=== PATIENT | male | born 1930 | race Caucasian/White ===

== ENCOUNTER 2018-03-11 17:22 | Emergency (ER) | payer MEDICARE, OTHER ==
[2018-03-11 18:08] LABS: BASOPHILS % (AUTO) 0.3 % (0.0-5.0); EOSINOPHILS % (AUTO) 1.7 % (0.0-8.0); HEMATOCRIT 40.3 % (42-54); LYMPHOCYTES % (AUTO) 16.8 % (21.0-51.0); MEAN CORPUSCULAR HEMOGLOBIN 31.6 pg (27.0-33.0); MEAN CORPUSCULAR HGB CONC 35.1 g/dL (32.0-36.0); MEAN CORPUSCULAR VOLUME 90.1 fL (79-99); MONOCYTES % (AUTO) 10.1 % (3.0-13.0); NEUTROPHILS % (AUTO) 71.1 % (40.0-77.0); PLATELET COUNT (AUTO) 208 K/uL (130-400); RED BLOOD CELL COUNT(AUTO) 4.47 MIL/uL (4.50-6.20); RED CELL DISTRIBUTION WIDTH 13.8 % (11.0-15.5); WHITE BLOOD COUNT (AUTO) 7.6 K/uL (4.8-10.8)
[2018-03-11 18:11] LABS: POTASSIUM 3.7 mmol/L (3.5-5.1)
[2018-03-11] MEDS ORDERED: DICYCLOMINE HCL 10 MG/ML 2ML AMP IM ONE (18:18)
[2018-03-11 18:25] LABS: ALBUMIN 4.1 g/dL (3.5-5.0); BILIRUBIN,TOTAL 0.4 mg/dL (0.2-1.0); CREATINE KINASE MB 1.7 ng/mL (0.5-3.6); TOTAL PROTEIN, SERUM 7.3 g/dL (6.0-8.3)
[2018-03-11] MEDS ORDERED: LACTULOSE 20 GM/30 ML UDCUP ONE (19:22)
[2018-03-11] MEDS ORDERED: BISACODYL 10 MG SUPP.RECT RC ONE (19:23)
[2018-03-11 19:49] LABS: APPEARANCE,URINE Clear (CLEAR); BILIRUBIN,URINE Negative (NEGATIVE); COLOR,URINE Yellow (YELLOW); GLUCOSE, URINE (UA) Negative (NEGATIVE); KETONES,URINE Negative (NEGATIVE); LEUKOCYTE ESTERASE ,URINE Negative (NEGATIVE); NITRATE,URINE Negative (NEGATIVE); OCCULT BLOOD,URINE Trace (NEGATIVE); PH,URINE 6.5 (5.0-8.0); PROTEIN,URINE Negative (NEGATIVE); UROBILINOGEN,URINE 0.2 mg/dL (0.2-1.0)
[2018-03-11 20:10] LABS: SQUAMOUS EPITHELIAL CELL,UR 0-2 /HPF (0-2)
[2018-03-11 20:12] LABS: BACTERIA,URINE Few /HPF (None Seen); MUCUS,URINE None Seen LPF (None Seen); WBC,URINE 0-1 /HPF (0-1)
[2018-03-11] MEDS ORDERED: SIMETHICONE 80 MG TAB.CHEW ONE (20:44)
== END 2018-03-11 21:15 | disposition home or self-care (01) ==
LOC: EDH 17:22
DX: K59.00 Constipation, unspecified (principal); I10 Essential (primary) hypertension; Z85.46 Personal history of malignant neoplasm of prostate
CPT/HCPCS: 36415; 74021; 80053; 81001; 82550; 82553; 84484; 85025; 93005; 96372; 99285; J0500

== ENCOUNTER → 2019-10-14 | Outpatient (CLI) | payer MEDICARE, OTHER | END | disposition home or self-care (01) | LOC: RAH 08:58 | PROVIDERS: ATTEND Internal Medicine Gastroenterology | DX: K44.9 Diaphragmatic hernia without obstruction or gangrene (principal); K21.9 Gastro-esophageal reflux disease without esophagitis | CPT/HCPCS: 74240 ==

== ENCOUNTER 2019-10-28 05:40 | Day surgery (SDC) | payer MEDICARE, OTHER ==
[~2019-10-28] VITALS: Ht 167.6 cm; Wt 83.0 kg
[~2019-10-28 05:40] MED LIST: AMLODIPINE; OMEP20TA25 PO; PRAV40TA3 PO; VIT D 3 PO; ZOLP6.2526 PO
[2019-10-28] MEDS ORDERED: SODIUM CHLORIDE 0.9% 1000ML 1,000 ML IV ONE (05:52)
[2019-10-28 06:15] VITALS: BP 131/59
[2019-10-28] MEDS ORDERED: PROPOFOL 10 MG/ML 20ML VIAL IV ONE (06:59)
[2019-10-28] MEDS ORDERED: LIDOCAINE HCL 1% 20 ML VIAL ONE (07:00)
[2019-10-28 07:15] VITALS: BP 111/57
[2019-10-28 07:20] VITALS: BP 113/63
[2019-10-28 07:25] VITALS: BP 109/56
== END 2019-10-28 08:05 | disposition home or self-care (01) ==
LOC: DAH 05:40 → ENDO 05:40
PROVIDERS: ATTEND Internal Medicine Gastroenterology
DX: R13.10 Dysphagia, unspecified (principal); K29.50 Unspecified chronic gastritis without bleeding; K22.2 Esophageal obstruction; K44.9 Diaphragmatic hernia without obstruction or gangrene; K21.9 Gastro-esophageal reflux disease without esophagitis; E78.5 Hyperlipidemia, unspecified; I10 Essential (primary) hypertension; F41.9 Anxiety disorder, unspecified; Z79.899 Other long term (current) drug therapy; Z86.010 Personal history of colon polyps; Z85.46 Personal history of malignant neoplasm of prostate; Z98.890 Other specified postprocedural states; Z82.49 Family history of ischemic heart disease and other diseases of the circulatory system
CPT/HCPCS: 43239; 43249; 88305; 93005; A4215; A4221; A4222; A4223; A4606; A4615; A4663; C1726; J2704; J7030

== ENCOUNTER → 2021-02-11 | Outpatient (CLI) | payer MEDICARE, OTHER ==
[~2021-02-11] MED LIST changes: +IOHEXOL 350 MG/ML 100ML INFUS..BTL IV ONE; -ZOLP6.2526 PO; +ZOLP6.2539 PO
== END | disposition home or self-care (01) ==
LOC: OIH 07:31
PROVIDERS: ATTEND Internal Medicine Gastroenterology
DX: N28.1 Cyst of kidney, acquired (principal); K86.89 Other specified diseases of pancreas; K57.90 Diverticulosis of intestine, part unspecified, without perforation or abscess without bleeding; M51.34 Other intervertebral disc degeneration, thoracic region
CPT/HCPCS: 74170; Q9967

== ENCOUNTER → 2021-03-16 | Outpatient (CLI) | payer MEDICARE ==
[~2021-03-16] MED LIST changes: +AMLO5TAB4 PO; +ASPI-1197 PO; +FAMO40TA7 PO; +GADOTERATE MEGLUMINE 10 MMOL/20 ML VIAL IV ONE; +HYDR12.54 PO; -IOHEXOL 350 MG/ML 100ML INFUS..BTL IV ONE; +PANT40TA55 PO; +VALS160T29 PO
== END | disposition home or self-care (01) ==
LOC: RAH 07:26
PROVIDERS: ATTEND Internal Medicine Gastroenterology
DX: N28.1 Cyst of kidney, acquired (principal); R10.12 Left upper quadrant pain; K86.89 Other specified diseases of pancreas; K76.89 Other specified diseases of liver
CPT/HCPCS: 74183; A9575

== ENCOUNTER 2021-03-21 20:00 | Observation (INO) | payer MEDICARE ==
[~2021-03-21] VITALS: Ht 167.6 cm; Wt 78.0 kg
[2021-03-21 20:00] VITALS: BP 134/57
[~2021-03-21 20:00] MED LIST changes: -AMLO5TAB4 PO; -ASPI-1197 PO; -FAMO40TA7 PO; -GADOTERATE MEGLUMINE 10 MMOL/20 ML VIAL IV ONE; -HYDR12.54 PO; -PANT40TA55 PO; -VALS160T29 PO
[2021-03-21 20:14] LABS: HEMATOCRIT 39.8 % (42-54); MEAN CORPUSCULAR HEMOGLOBIN 30.1 pg (27.0-33.0); MEAN CORPUSCULAR HGB CONC 33.2 g/dL (32.0-36.0); MEAN CORPUSCULAR VOLUME 90.9 fL (79-99); RED BLOOD CELL COUNT(AUTO) 4.38 MIL/uL (4.50-6.20); RED CELL DISTRIBUTION WIDTH 12.8 % (11.0-15.5); WHITE BLOOD COUNT (AUTO) 6.3 K/uL (4.8-10.8)
[2021-03-21] MEDS ORDERED: MAG/ALUM/SIMETH 30 ML UDCUP PO ONE (20:30)
[2021-03-21] MEDS ORDERED: FAMOTIDINE 20MG VIAL IV ONE (20:30)
[2021-03-21] MEDS ORDERED: LIDOCAINE HCL 2% VISCOUS 15 ML UDCUP PO ONE (20:30)
[2021-03-21 20:52] LABS: CREATININE 1.2 mg/dL (0.5-1.5); POTASSIUM 3.7 mmol/L (3.5-5.1)
[2021-03-21 20:56] LABS: ALBUMIN 3.9 g/dL (3.5-5.0); BILIRUBIN,TOTAL 0.3 mg/dL (0.2-1.0); TOTAL PROTEIN, SERUM 7.3 g/dL (6.0-8.3)
[2021-03-21] MEDS: NITROGLYCERIN 0.4 MG SL TAB SL PRN ×4 (21:55→22:49)
[2021-03-21] MEDS ORDERED: DICYCLOMINE HCL 20 MG TAB PO SCH (22:00)
[2021-03-21 22:12] LABS: APPEARANCE,URINE Clear (CLEAR); BILIRUBIN,URINE Negative (NEGATIVE); COLOR,URINE Yellow (YELLOW); GLUCOSE, URINE (UA) Negative (NEGATIVE); KETONES,URINE Negative (NEGATIVE); LEUKOCYTE ESTERASE ,URINE Negative (NEGATIVE); NITRATE,URINE Negative (NEGATIVE); OCCULT BLOOD,URINE Negative (NEGATIVE); PROTEIN,URINE Negative (NEGATIVE)
[2021-03-21] MEDS ORDERED: NITROGLYCERIN 1GM OINT 1 INCH/1GM TD ONE (22:30)
[2021-03-21] MEDS ORDERED: ASPIRIN 325 MG TABLET PO SCH (23:00)
[2021-03-21 23:03] VITALS: BP 115/54
[2021-03-21] MEDS: NITROGLYCERIN 1GM OINT 1 INCH/1GM TD SCH (23:44)
[2021-03-22] VITALS (8 sets, daily range): BP systolic 95–131; BP diastolic 46–65
[2021-03-22] MEDS ORDERED: MORPHINE 2 MG SYG IVP PRN (00:30)
[2021-03-22] MEDS ORDERED: ONDANSETRON 4MG INJ IVP PRN (00:30)
[2021-03-22] MEDS ORDERED: AMLO5TAB4 PO (01:02)
[2021-03-22] MEDS ORDERED: ASPI-1197 PO (01:02)
[2021-03-22] MEDS ORDERED: VALS160T29 PO (01:03)
[2021-03-22] MEDS ORDERED: FAMO40TA7 PO (01:03)
[2021-03-22] MEDS ORDERED: HYDR12.54 PO (01:03)
[2021-03-22] MEDS: NITROGLYCERIN 1GM OINT 1 INCH/1GM TD SCH ×4 (05:09→23:00)
[2021-03-22 06:53] LABS: BASOPHILS % (AUTO) 0.2 % (0.0-5.0); HEMATOCRIT 38.7 % (42-54); LYMPHOCYTES % (AUTO) 8.4 % (21.0-51.0); MEAN CORPUSCULAR HEMOGLOBIN 29.9 pg (27.0-33.0); MEAN CORPUSCULAR HGB CONC 33.1 g/dL (32.0-36.0); MEAN CORPUSCULAR VOLUME 90.4 fL (79-99); MONOCYTES % (AUTO) 11.2 % (3.0-13.0); NEUTROPHILS % (AUTO) 79.7 % (40.0-77.0); PLATELET COUNT (AUTO) 182 K/uL (130-400); RED BLOOD CELL COUNT(AUTO) 4.28 MIL/uL (4.50-6.20); RED CELL DISTRIBUTION WIDTH 12.9 % (11.0-15.5); WHITE BLOOD COUNT (AUTO) 6.4 K/uL (4.8-10.8)
[2021-03-22 07:12] LABS: CARBON DIOXIDE 30 mmol/L (21-32); CHLORIDE 107 mmol/L (101-111); CHOLESTEROL 125 mg/dL (<200); CREATINE KINASE, TOTAL 87 U/L (21-232); CREATININE 1.1 mg/dL (0.5-1.5); GLOMERULAR FILTR. RATE CALC 67 mL/min (>60); GLUCOSE,RANDOM 154 mg/dL (70-105); HDL CHOLESTEROL 41 mg/dL (29-71); LDL DIRECT 72 mg/dL (0-99); MYOGLOBIN 69 ng/mL (10-92); POTASSIUM 4.2 mmol/L (3.5-5.1); SODIUM SERUM 145 mmol/L (136-145); TRIGLYCERIDES 78 mg/dL (30-200); TROPONIN I < 0.04 ng/mL (0.00-0.06); UREA NITROGEN, BLOOD 18 mg/dL (7-18)
[2021-03-22] MEDS: ASPIRIN 81MG CHEW TAB PO SCH (08:00)
[2021-03-22] MEDS: AMLODIPINE 5 MG TAB PO SCH (08:00)
[2021-03-22] MEDS: HYDROCHLOROTHIAZIDE 25 MG TABLET PO SCH (08:00)
[2021-03-22 08:44] LABS: MAGNESIUM 2.6 mg/dL (1.80-2.40); THYROID STIMULATING HORMONE 1.56 uIU/mL (0.36-3.74)
[2021-03-22] MEDS ORDERED: LOSARTAN 100 MG TABLET PO SCH (09:00)
[2021-03-22 13:36] LABS: CREATINE KINASE, TOTAL 87 U/L (21-232); MYOGLOBIN 91 ng/mL (10-92); TROPONIN I < 0.04 ng/mL (0.00-0.06)
[2021-03-22 19:41] LABS: CREATINE KINASE, TOTAL 110 U/L (21-232); MYOGLOBIN 121 ng/mL (10-92); TROPONIN I < 0.04 ng/mL (0.00-0.06)
[2021-03-22] MEDS ORDERED: VIT D 50 MCG PO SCH (21:00)
[2021-03-22] MEDS ORDERED: ZOLPIDEM TARTRATE 5 MG TAB PO SCH (21:00)
[2021-03-22] MEDS ORDERED: SIMVASTATIN 20 MG TABLET PO SCH (21:00)
[2021-03-23 03:07] VITALS: BP 96/53
[2021-03-23 04:09] LABS: BASOPHILS % (AUTO) 0.4 % (0.0-5.0); EOSINOPHILS % (AUTO) 2.9 % (0.0-8.0); HEMATOCRIT 33.9 % (42-54); LYMPHOCYTES % (AUTO) 15.6 % (21.0-51.0); MEAN CORPUSCULAR HEMOGLOBIN 29.8 pg (27.0-33.0); MEAN CORPUSCULAR HGB CONC 32.7 g/dL (32.0-36.0); MEAN CORPUSCULAR VOLUME 90.9 fL (79-99); MONOCYTES % (AUTO) 13.7 % (3.0-13.0); PLATELET COUNT (AUTO) 160 K/uL (130-400); RED BLOOD CELL COUNT(AUTO) 3.73 MIL/uL (4.50-6.20); RED CELL DISTRIBUTION WIDTH 13.2 % (11.0-15.5); WHITE BLOOD COUNT (AUTO) 5.6 K/uL (4.8-10.8)
[2021-03-23 04:34] LABS: CREATININE 1.2 mg/dL (0.5-1.5); POTASSIUM 3.5 mmol/L (3.5-5.1)
[2021-03-23] MEDS: NITROGLYCERIN 1GM OINT 1 INCH/1GM TD SCH (05:00)
[2021-03-23 08:42] VITALS: BP 104/53
[2021-03-23] MEDS ORDERED: PANTOPRAZOLE 40 MG TAB DR PO SCH (08:57)
[2021-03-23] MEDS: AMLODIPINE 5 MG TAB PO SCH (09:53)
[2021-03-23] MEDS: ASPIRIN 81MG CHEW TAB PO SCH (09:54)
[2021-03-23] MEDS: HYDROCHLOROTHIAZIDE 25 MG TABLET PO SCH (09:54)
[2021-03-23 11:40] VITALS: BP 115/63
[2021-03-23] MEDS ORDERED: PANT40TA55 PO (11:42)
== END 2021-03-23 12:55 | disposition home or self-care (01) ==
LOC: EDH 20:00 → EDHIP 22:56 → 4CH 03-22 08:22
PROVIDERS: ADMIT Hospitalist; ATTEND Hospitalist
DX: I24.9 Acute ischemic heart disease, unspecified (principal); R10.13 Epigastric pain; I10 Essential (primary) hypertension; G47.33 Obstructive sleep apnea (adult) (pediatric); E78.5 Hyperlipidemia, unspecified; K44.9 Diaphragmatic hernia without obstruction or gangrene; K21.9 Gastro-esophageal reflux disease without esophagitis; Z85.828 Personal history of other malignant neoplasm of skin; Z79.899 Other long term (current) drug therapy
CPT/HCPCS: 36415 ×3; 71045; 76705; 80048 ×2; 80053; 80061; 81003; 82550 ×3; 83690; 83735; 83874 ×3; 84443; 84484 ×5; 85025 ×2; 85027; 93005 ×4; 96374; 96375; 99285; G0378 ×38; J2405; J3490

== ENCOUNTER 2021-03-30 09:47 | Day surgery (SDC) | payer MEDICARE ==
[2021-03-30] VITALS (16 sets, daily range): BP systolic 112–154; BP diastolic 50–71
[~2021-03-30 09:47] MED LIST changes: +0.9%NACL 1000ML 1,000 ML IV ONE; +AMLO5TAB4 PO; -AMLODIPINE; +ASPI-1197 PO; +HYDR12.54 PO; -OMEP20TA25 PO; +PANT40TA55 PO; +VALS160T29 PO
[2021-03-30] MEDS ORDERED: IOHEXOL-350 50ML VIAL IV ONE (11:13)
[2021-03-30] MEDS ORDERED: SUCCINYLCHOLINE 200MG/10ML SYR ONE (12:27)
[2021-03-30] MEDS ORDERED: PROPOFOL 10 MG/ML 20ML VIAL IV ONE (12:27)
[2021-03-30] MEDS ORDERED: INDOMETHACIN 50 MG SUPP.RECT RC SCH (12:30)
[2021-03-30] MEDS ORDERED: ASPI-1197 PO (15:11)
== END 2021-03-30 15:10 | disposition home or self-care (01) ==
LOC: ENDO 09:47 → DAH 09:47 → ENDO 15:10
PROVIDERS: ATTEND Internal Medicine
DX: K86.89 Other specified diseases of pancreas (principal); Z20.822 Contact with and (suspected) exposure to COVID-19; I10 Essential (primary) hypertension; E78.5 Hyperlipidemia, unspecified; K21.9 Gastro-esophageal reflux disease without esophagitis; G47.30 Sleep apnea, unspecified
CPT/HCPCS: 43260; 74329; 87635; A4215; A4221; A4222; A4223; A4606; A4620; A4657 ×2; A4663; C1769 ×2; C9803; J0330; J2704; J7030 ×2; Q9967; 74330

== ENCOUNTER 2021-04-20 08:46 | Day surgery (SDC) | payer MEDICARE ==
[2021-04-20] VITALS (7 sets, daily range): BP systolic 103–136; BP diastolic 51–62
[~2021-04-20] VITALS: Ht 167.6 cm; Wt 76.2 kg
[~2021-04-20 08:46] MED LIST changes: -0.9%NACL 1000ML 1,000 ML IV ONE; -VIT D 3 PO; +ZOLP5TAB2 PO; -ZOLP6.2539 PO
[2021-04-20] MEDS ORDERED: 0.9%NACL 1000ML 1,000 ML IV ONE (10:47)
[2021-04-20] MEDS ORDERED: PROPOFOL 10 MG/ML 20ML VIAL IV ONE (13:30)
[2021-04-20] MEDS ORDERED: LIDOCAINE HCL 1% 20 ML VIAL ONE (13:31)
== END 2021-04-20 14:20 | disposition home or self-care (01) ==
LOC: DAH 08:46 → ENDO 08:46
PROVIDERS: ATTEND Internal Medicine Gastroenterology
DX: T18.3XXA Foreign body in small intestine, initial encounter (principal); Z20.822 Contact with and (suspected) exposure to COVID-19; K86.89 Other specified diseases of pancreas; R10.12 Left upper quadrant pain; I10 Essential (primary) hypertension; E78.5 Hyperlipidemia, unspecified; K21.9 Gastro-esophageal reflux disease without esophagitis; G47.30 Sleep apnea, unspecified; Z85.46 Personal history of malignant neoplasm of prostate; Z86.010 Personal history of colon polyps; Z98.890 Other specified postprocedural states
CPT/HCPCS: 43235; 87635; 93005; A4215 ×2; A4221; A4222; A4223; A4606; A4620; A4657; A4663; C9803; J2704; J7030

== ENCOUNTER 2021-07-02 13:00 | Emergency (ER) | payer MEDICARE ==
[~2021-07-02] VITALS: Ht 167.6 cm; Wt 74.8 kg
[2021-07-02 13:31] LABS: BASOPHILS % (AUTO) 0.4 % (0.0-5.0); EOSINOPHILS % (AUTO) 2.6 % (0.0-8.0); LYMPHOCYTES % (AUTO) 25.2 % (21.0-51.0); MEAN CORPUSCULAR HEMOGLOBIN 31.3 pg (27.0-33.0); MEAN CORPUSCULAR HGB CONC 33.6 g/dL (32.0-36.0); MONOCYTES % (AUTO) 8.8 % (3.0-13.0); NEUTROPHILS % (AUTO) 62.8 % (40.0-77.0); PLATELET COUNT (AUTO) 172 K/uL (130-400); RED BLOOD CELL COUNT(AUTO) 3.87 MIL/uL (4.50-6.20); RED CELL DISTRIBUTION WIDTH 12.9 % (11.0-15.5); WHITE BLOOD COUNT (AUTO) 5.4 K/uL (4.8-10.8)
[2021-07-02 13:44] LABS: CREATININE 0.9 mg/dL (0.5-1.5)
[2021-07-02 13:51] LABS: ALBUMIN 3.9 g/dL (3.5-5.0); BILIRUBIN,TOTAL 0.4 mg/dL (0.2-1.0); TOTAL PROTEIN, SERUM 6.8 g/dL (6.0-8.3)
[2021-07-02 14:14] LABS: APPEARANCE,URINE Clear (CLEAR); BILIRUBIN,URINE Negative (NEGATIVE); COLOR,URINE Yellow (YELLOW); GLUCOSE, URINE (UA) Negative (NEGATIVE); KETONES,URINE Negative (NEGATIVE); LEUKOCYTE ESTERASE ,URINE Negative (NEGATIVE); NITRATE,URINE Negative (NEGATIVE); OCCULT BLOOD,URINE Negative (NEGATIVE); PROTEIN,URINE Negative (NEGATIVE)
[2021-07-02 15:50] VITALS: BP 140/72
== END 2021-07-02 15:52 | disposition home or self-care (01) ==
LOC: EDH 13:00
DX: R51.9 Headache, unspecified (principal); R42 Dizziness and giddiness; E78.00 Pure hypercholesterolemia, unspecified; I10 Essential (primary) hypertension; Z79.82 Long term (current) use of aspirin; Z79.899 Other long term (current) drug therapy
CPT/HCPCS: 36415; 70450; 80053; 81003; 85025; 85651; 87088

== ENCOUNTER → 2022-03-28 | Outpatient (CLI) | payer MEDICARE ==
[~2022-03-28] MED LIST changes: +IOHEXOL 350 MG/ML 100ML INFUS..BTL IV ONE
== END | disposition home or self-care (01) ==
LOC: RAH 08:26
PROVIDERS: ATTEND Family Medicine
DX: K76.89 Other specified diseases of liver (principal); N40.0 Benign prostatic hyperplasia without lower urinary tract symptoms; N28.1 Cyst of kidney, acquired; R63.4 Abnormal weight loss
CPT/HCPCS: 74178; Q9967